=== PATIENT | female | born 1955 | race Caucasian/White ===

== ENCOUNTER → 2024-02-05 | Outpatient (CLI) | payer MEDICARE, OTHER, SELFPAY ==
--- NOTE | 2024-02-05 11:50 | RAD_ITS ---
HISTORY: LEG LENGTH, PAIN IN LEGS. TECHNIQUE: XR Bone Length Studies Scanograms. COMPARISON: None. FINDINGS: BONES : No definite acute osseous abnormality identified on single frontal view. No significant leg length discrepancy. JOINTS: Unremarkable alignment. Mild degenerative changes of the knees. RAD/Bone Length IMPRESSION: Unremarkable examination.. Electronically Signed: Camilla Carney MD at 11:05 EDT ,
== END | disposition home or self-care (01) ==
PROVIDERS: Referring Provider Podiatrist Foot & Ankle Surgery; Visit Provider Podiatrist Foot & Ankle Surgery
DX: M79.604 Pain in right leg (principal); M79.605 Pain in left leg
CPT/HCPCS: 77073